=== PATIENT | female | born 1925 | race Caucasian/White ===

== ENCOUNTER → 2017-03-02 | Outpatient (CLI) | payer MEDICARE, OTHER ==
[2016-07-02 11:16] VITALS: BP 108/52
[~2017-03-02] MED LIST: ASPI-482 PO; ATEN25TA PO; ATOR10TA PO; AZIT250T6 PO; BUDE10.2 IH; BUDE10.22 IH; CELE200C PO; CITA10TA8 PO; CLON0.25 PO; CLON0.5T3 PO; Clotrimazole/Betamethasone Dip TP; DONE5TAB56 PO; DONE5TAB7 PO; IPRA3AMP NEB; MEMA10TA PO; NITR0.4T SL; OMEP20TA63 PO; PANT40GR PO; PANT40TA3 PO; PARO10TA57 PO; PARO20TA3 PO; PRED20TA PO; TIOT18CA IH
--- NOTE | 2017-03-02 12:47 | RAD ---
EXAM: Chest 2 views. HISTORY: Shortness of breath. COMPARISON: 06/30/2016. FINDINGS: Frontal and lateral views of the chest are obtained. There are no confluent infiltrates. Hyperinflation is consistent with chronic obstructive pulmonary disease. There is no pneumothorax or pleural effusion. The heart is not enlarged. There are atherosclerotic calcifications of the aorta. 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 IMPRESSION: 1. Chronic obstructive pulmonary disease. No confluent infiltrates.
== END | disposition home or self-care (01) ==
LOC: DXRAD 12:18
PROVIDERS: ATTEND Internal Medicine Pulmonary Disease
DX: J44.9 Chronic obstructive pulmonary disease, unspecified (principal); I70.0 Atherosclerosis of aorta
CPT/HCPCS: 71020